=== PATIENT | female | born 1945 | race Caucasian/White ===

== ENCOUNTER → 2016-12-18 | Outpatient (CLI) | payer MEDICARE, OTHER ==
[~2016-12-18] MED LIST: ALEN35TA6 PO; ATOR10TA PO; CALC-151 PO; CALC-60 PO; GLIP5TAB10 PO; HYDR-3240 PO; LETR2.5T2 PO; LOSA100T6 PO; METF500T4 PO
== END | disposition home or self-care (01) ==
LOC: CFH 10:32
PROVIDERS: ATTEND Nurse Practitioner
DX: M48.07 Spinal stenosis, lumbosacral region (principal); M51.16 Intervertebral disc disorders with radiculopathy, lumbar region; M25.78 Osteophyte, vertebrae; M51.24 Other intervertebral disc displacement, thoracic region
CPT/HCPCS: 72148

== ENCOUNTER → 2017-05-01 | Outpatient (CLI) | payer MEDICARE, OTHER ==
[~2017-05-01] MED LIST changes: +HYDR-3237 PO
[2017-05-01 11:25] LABS: HEMATOCRIT 38.4 % (34.6-47.8); HEMOGLOBIN 12.9 g/dL (11.7-16.4); WHITE BLOOD COUNT 6.2 x10^3/uL (3.4-10)
[2017-05-01 11:32] LABS: ASPARTATE AMINO TRANSFERASE 27 U/L (15-37); BLOOD UREA NITROGEN 19 mg/dL (7-18)
== END | disposition home or self-care (01) ==
LOC: STAR 10:19
PROVIDERS: ATTEND Neurological Surgery
DX: Z01.818 Encounter for other preprocedural examination (principal); M43.15 Spondylolisthesis, thoracolumbar region; M54.16 Radiculopathy, lumbar region; R79.1 Abnormal coagulation profile; Z85.3 Personal history of malignant neoplasm of breast
CPT/HCPCS: 36415; 71020; 80053; 85025; 85610; 85730; 93005

== ENCOUNTER → 2017-05-04 | Outpatient (CLI) | payer MEDICARE, OTHER | END | disposition home or self-care (01) | LOC: CFH 14:21 | PROVIDERS: ATTEND Internal Medicine Hematology & Oncology | DX: Z12.31 Encounter for screening mammogram for malignant neoplasm of breast (principal); Z85.3 Personal history of malignant neoplasm of breast | CPT/HCPCS: 77063; G0202 ==

== ENCOUNTER 2017-05-12 12:02 | Inpatient (IN) | payer MEDICARE, OTHER ==
[2017-05-01 10:48] VITALS: BP 123/87
[~2017-05-12] VITALS: Ht 160 cm; Wt 88.9 kg
[2017-05-12] MEDS ORDERED: LACTATED RINGERS 1,000 ML IV SCH (12:42)
[2017-05-12] MEDS ORDERED: FENTANYL PF 100 MCG/2ML ONE ×3 (12:48→15:59)
[2017-05-12] MEDS ORDERED: MIDAZOLAM 1 MG/ML, 2ML ONE (12:48)
[2017-05-12] MEDS ORDERED: PROPOFOL 10 MG/ML, 20ML ONE (12:49)
[2017-05-12] MEDS ORDERED: CEFAZOLIN 1,000 MG ONE ×2 (12:50)
[2017-05-12] MEDS ORDERED: ROCURONIUM 10 MG/ML,10ML ONE ×2 (12:51→14:03)
[2017-05-12] MEDS ORDERED: NEOSTIGMINE 1 MG/ML, 10ML ONE ×2 (12:52)
[2017-05-12] MEDS ORDERED: GLYCOPYRROLATE 0.4 MG/2 ML, 2ML ONE (12:52)
[2017-05-12] MEDS ORDERED: PROMETHAZINE 25 MG/ML, 1ML IV PRN (14:00)
[2017-05-12] MEDS ORDERED: ONDANSETRON 2MG/ML, 2ML IVPush PRN (14:00)
[2017-05-12] MEDS ORDERED: FENTANYL PF 100 MCG/2ML IV PRN (14:00)
[2017-05-12] MEDS ORDERED: hydrALAzine 20 MG/ML, 1ML IV PRN (14:00)
[2017-05-12] MEDS ORDERED: HYDROcodone/APAP 7.5-325MG/15ML UDC PO PRN (14:00)
[2017-05-12] MEDS ORDERED: HYDROmorphone 1 MG/ML, 1ML IV PRN (14:00)
[2017-05-12] MEDS ORDERED: MEPERIDINE/PF 25MG/0.5ML IVPush PRN (14:00)
[2017-05-12] MEDS ORDERED: LABETALOL 5MG/ML, 20ML IV PRN (14:00)
[2017-05-12] MEDS ORDERED: ONDANSETRON 2MG/ML, 2ML ONE ×2 (14:13)
[2017-05-12] MEDS ORDERED: PHENYLEPHRINE 10 MG/ML ONE (14:31)
[2017-05-12] MEDS ORDERED: HYDROmorphone 2 MG/ML, 1ML ONE (15:59)
[2017-05-12] MEDS ORDERED: HYDROmorphone 2MG TABLET PO PRN (17:30)
[2017-05-12] MEDS ORDERED: MAGNESIUM HYDROXIDE 8%, 30ML UDC PO PRN (17:30)
[2017-05-12] MEDS ORDERED: HYDROmorphone 1 MG/ML, 1ML IVPush PRN (17:30)
[2017-05-12] MEDS ORDERED: DIPHENHYDRAMINE 50 MG CAPSULE PO PRN (17:30)
[2017-05-12] MEDS ORDERED: OXYcodone/APAP 5/325MG TABLET PO PRN (17:30)
[2017-05-12] MEDS ORDERED: METHOCARBAMOL 750 MG TABLET PO PRN (17:30)
[2017-05-12] MEDS ORDERED: DIPHENHYDRAMINE 50 MG/ML, 1ML IM PRN (17:30)
[2017-05-12] MEDS ORDERED: BISACODYL 10 MG SUPP PR PRN (17:30)
[2017-05-12] MEDS ORDERED: DIPHENHYDRAMINE 50 MG/ML, 1ML IVPush PRN (17:30)
[2017-05-12] MEDS ORDERED: ONDANSETRON 2MG/ML, 2ML IV PRN (17:30)
[2017-05-12] MEDS ORDERED: HYDROmorphone 2 MG/ML, 1ML IM PRN (17:30)
[2017-05-12] MEDS ORDERED: PROMETHAZINE 25 MG/ML, 1ML IM PRN (17:30)
[2017-05-12] MEDS: CEFAZOLIN PMX 1GM/50ML 50 ML IVPB SCH (19:22)
[2017-05-12] MEDS ORDERED: ZOLPIDEM 5MG TABLET PO PRN (21:00)
[2017-05-12 21:07] VITALS: BP 120/84
[2017-05-12] MEDS: HYDROcodone/APAP 5/325 TABLET PO PRN (22:15)
[2017-05-13 00:08] VITALS: BP 103/65
[2017-05-13] MEDS: HYDROcodone/APAP 5/325 TABLET PO PRN ×3 (02:29→10:43)
[2017-05-13 03:43] VITALS: BP 126/84
[2017-05-13] MEDS: CEFAZOLIN PMX 1GM/50ML 50 ML IVPB SCH (04:00)
[2017-05-13 06:52] VITALS: BP_SYST 108; BP_SYST 88; BP_DIAS 40; BP_DIAS 73
[2017-05-13] MEDS ORDERED: metFORMIN 500 MG TABLET PO SCH (09:00)
[2017-05-13] MEDS ORDERED: SENNA/DOCUSATE TABLET PO SCH (09:00)
[2017-05-13] MEDS ORDERED: CALCIUM/VITAMIN D3 250-125 TABLET PO SCH (09:00)
[2017-05-13] MEDS ORDERED: LOSARTAN 50MG TABLET PO SCH (09:00)
[2017-05-13] MEDS ORDERED: LETROZOLE 2.5 MG TABLET PO SCH (09:00)
== END 2017-05-13 11:45 | disposition home or self-care (01) | DRG 519 ==
LOC: OUT 12:02 → 4NOR 17:10 → OUT 23:01 → 4NOR 23:02 → DCLOUNGE 05-13 11:25
PROVIDERS: ADMIT Neurological Surgery; ATTEND Neurological Surgery
PROC: 01NB0ZZ Release Lumbar Nerve, Open Approach (ICD-10-PCS; 2017-05-12)
PROC: 0SB20ZZ Excision of Lumbar Vertebral Disc, Open Approach (ICD-10-PCS; principal; 2017-05-12 15:00)
DX: M51.16 Intervertebral disc disorders with radiculopathy, lumbar region (principal); E44.0 Moderate protein-calorie malnutrition; E11.9 Type 2 diabetes mellitus without complications; I10 Essential (primary) hypertension; M43.10 Spondylolisthesis, site unspecified; M51.26 Other intervertebral disc displacement, lumbar region; Z85.3 Personal history of malignant neoplasm of breast; Z79.84 Long term (current) use of oral hypoglycemic drugs; Z88.5 Allergy status to narcotic agent; Z87.891 Personal history of nicotine dependence
CPT/HCPCS: 72100; 82962; J0171; J0690; J1170; J2250; J2405; J2704; J2710; J3010; J3490; J2370; J7120

== ENCOUNTER → 2017-10-13 | Outpatient (CLI) | payer MEDICARE, OTHER ==
[~2017-10-13] MED LIST changes: +OMNIPAQUE 350 MG/ML, 150 ML BOTTLE ONE
== END ==
LOC: CFH 09:59
PROVIDERS: ATTEND Physician Assistant
DX: I72.8 Aneurysm of other specified arteries (principal); K57.30 Diverticulosis of large intestine without perforation or abscess without bleeding
CPT/HCPCS: 74178; Q9967

== ENCOUNTER 2017-11-10 09:47 | Day surgery (SDC) | payer MEDICARE, OTHER ==
[~2017-11-10] VITALS: Ht 157.5 cm; Wt 89.0 kg
[~2017-11-10 09:47] MED LIST changes: +CALC500T93 PO; -OMNIPAQUE 350 MG/ML, 150 ML BOTTLE ONE; +SITA50TA PO
[2017-11-10] MEDS ORDERED: LACTATED RINGERS 1,000 ML IV SCH (10:11)
[2017-11-10 10:19] VITALS: BP 141/92
[2017-11-10] MEDS ORDERED: MITOMYCIN 40 MG, WATER FOR INJECTION,STERILE 40 ML in SYRINGE 1 EA INTVESIC ONE (12:00)
[2017-11-10] MEDS ORDERED: FENTANYL PF 100 MCG/2ML ONE (12:08)
[2017-11-10] MEDS ORDERED: HYDROcodone/APAP 7.5-325MG/15ML UDC PO PRN (14:30)
[2017-11-10] MEDS ORDERED: PROMETHAZINE 25 MG/ML, 1ML IV PRN (14:30)
[2017-11-10] MEDS ORDERED: FENTANYL PF 100 MCG/2ML IV PRN (14:30)
[2017-11-10] MEDS ORDERED: MORPHINE SULFATE 4 MG/ML, 1ML IVPush PRN (14:30)
[2017-11-10] MEDS ORDERED: ALBUTEROL SULFATE 2.5 MG/3 ML NPPB PRN (14:30)
[2017-11-10] MEDS ORDERED: DEXAMETHASONE 4 MG/ML, 1ML ONE (15:30)
[2017-11-10] MEDS ORDERED: SUCCINYLCHOLINE 20 MG/ML, 10ML ONE (15:30)
[2017-11-10] MEDS ORDERED: CEFAZOLIN 1,000 MG ONE (15:30)
[2017-11-10] MEDS ORDERED: NEOSTIGMINE 1 MG/ML, 10ML ONE (15:30)
[2017-11-10] MEDS ORDERED: PROPOFOL 10 MG/ML, 20ML ONE (15:30)
[2017-11-10] MEDS ORDERED: ONDANSETRON 2MG/ML, 2ML ONE (15:30)
[2017-11-10] MEDS ORDERED: GLYCOPYRROLATE 0.2MG/1ML, 5ML ONE (15:30)
[2017-11-10] MEDS ORDERED: ROCURONIUM 10 MG/ML,10ML ONE (15:30)
== END 2017-11-10 17:00 ==
LOC: OUT 09:47
PROVIDERS: ATTEND Urology
DX: C67.9 Malignant neoplasm of bladder, unspecified (principal); E11.9 Type 2 diabetes mellitus without complications; I10 Essential (primary) hypertension; E78.5 Hyperlipidemia, unspecified; Z88.5 Allergy status to narcotic agent; Z88.8 Allergy status to other drugs, medicaments and biological substances
CPT/HCPCS: 52235; 82962; 88112; 88307; J0330; J0690; J1100; J2405; J2704; J2710; J3010; J7120; J9280; J3490

== ENCOUNTER → 2017-11-17 | Outpatient (CLI) | payer MEDICARE, OTHER | END | disposition home or self-care (01) | LOC: CFH 12:29 | PROVIDERS: ATTEND Internal Medicine Hematology & Oncology | DX: Z13.820 Encounter for screening for osteoporosis (principal); M85.88 Other specified disorders of bone density and structure, other site; C50.312 Malignant neoplasm of lower-inner quadrant of left female breast; Z78.0 Asymptomatic menopausal state | CPT/HCPCS: 77080 ==

== ENCOUNTER → 2017-12-16 | Outpatient (CLI) | payer MEDICARE, OTHER ==
[~2017-12-16] MED LIST changes: -METF500T4 PO; +METF500T5 PO
[2017-12-16 16:02] LABS: MICROSCOPIC AUTO
[2017-12-16 16:02] LABS: PROTHROMBIN TIME 10.3 Seconds (9.6-11.5)
[2017-12-16 16:07] LABS: ALBUMIN 3.9 g/dL (3.4-5.0); ANION GAP 7 mmol/L (5-15); CALCIUM 9.5 mg/dL (8.5-10.1); CHLORIDE 108 mmol/L (98-107)
[2017-12-16 16:12] LABS: ALANINE AMINOTRANSFERASE 47 U/L (12-78); ALKALINE PHOSPHATASE 59 U/L (45-117); BILIRUBIN,TOTAL 0.4 mg/dL (0.2-1.0); CREATININE 1.19 mg/dL (0.55-1.02); TOTAL PROTEIN 7.7 g/dL (6.4-8.2)
== END | disposition home or self-care (01) ==
LOC: STAR 14:47
PROVIDERS: ATTEND Urology
DX: Z01.818 Encounter for other preprocedural examination (principal); C67.9 Malignant neoplasm of bladder, unspecified; I10 Essential (primary) hypertension; E11.9 Type 2 diabetes mellitus without complications; Z88.5 Allergy status to narcotic agent
CPT/HCPCS: 36415; 80053; 81001; 85610; 85730; 87077; 87086; 87186

== ENCOUNTER 2017-12-25 10:49 | Day surgery (SDC) | payer MEDICARE, OTHER ==
[~2017-12-25] VITALS: Ht 157.5 cm; Wt 86.3 kg
[2017-12-25 11:21] VITALS: BP 123/76
[2017-12-25] MEDS ORDERED: LACTATED RINGERS 1,000 ML IV SCH (11:24)
[2017-12-25] MEDS ORDERED: FENTANYL PF 100 MCG/2ML ONE (12:54)
[2017-12-25] MEDS ORDERED: MIDAZOLAM 1 MG/ML, 2ML ONE (12:54)
[2017-12-25] MEDS ORDERED: DEXAMETHASONE 4 MG/ML, 1ML ONE (12:56)
[2017-12-25] MEDS ORDERED: CEFAZOLIN 1,000 MG ONE (12:56)
[2017-12-25] MEDS ORDERED: NEOSTIGMINE 1 MG/ML, 10ML ONE (12:56)
[2017-12-25] MEDS ORDERED: PROPOFOL 10 MG/ML, 20ML ONE (12:56)
[2017-12-25] MEDS ORDERED: GLYCOPYRROLATE 0.2MG/1ML, 5ML ONE (12:56)
[2017-12-25] MEDS ORDERED: ROCURONIUM 10 MG/ML,10ML ONE (12:56)
[2017-12-25] MEDS ORDERED: ONDANSETRON 2MG/ML, 2ML ONE (12:56)
[2017-12-25] MEDS ORDERED: EPHEDRINE 50 MG/ML, 1ML IVPush PRN (14:00)
[2017-12-25] MEDS ORDERED: ALBUTEROL SULFATE 2.5 MG/3 ML NPPB PRN (14:00)
[2017-12-25] MEDS ORDERED: MIDAZOLAM 1 MG/ML, 2ML IV PRN (14:00)
[2017-12-25] MEDS ORDERED: HYDROcodone/APAP 7.5-325MG/15ML UDC PO PRN (14:00)
[2017-12-25] MEDS ORDERED: ONDANSETRON ODT 8 MG PO PRN (14:00)
[2017-12-25] MEDS ORDERED: PROMETHAZINE 25 MG/ML, 1ML IV PRN (14:00)
[2017-12-25] MEDS ORDERED: MEPERIDINE/PF 25MG/0.5ML IVPush PRN (14:00)
[2017-12-25] MEDS ORDERED: LABETALOL 5MG/ML, 20ML IV PRN (14:00)
[2017-12-25] MEDS ORDERED: HYDROmorphone 1 MG/ML, 1ML IV PRN (14:00)
[2017-12-25] MEDS ORDERED: ACETAMINOPHEN 325 MG TABLET PO PRN (14:00)
[2017-12-25] MEDS ORDERED: FENTANYL PF 100 MCG/2ML IV PRN (14:00)
[2017-12-25] MEDS ORDERED: hydrALAzine 20 MG/ML, 1ML IV PRN (14:00)
== END 2017-12-25 15:35 | disposition home or self-care (01) ==
LOC: OR 10:49
PROVIDERS: ATTEND Urology
DX: N30.00 Acute cystitis without hematuria (principal); Z85.51 Personal history of malignant neoplasm of bladder; I10 Essential (primary) hypertension; E78.5 Hyperlipidemia, unspecified; E11.9 Type 2 diabetes mellitus without complications; Z85.3 Personal history of malignant neoplasm of breast; Z88.5 Allergy status to narcotic agent; Z88.8 Allergy status to other drugs, medicaments and biological substances; Z79.899 Other long term (current) drug therapy; Z79.84 Long term (current) use of oral hypoglycemic drugs; Z80.3 Family history of malignant neoplasm of breast
CPT/HCPCS: 52234; 82962; 88307; J0690; J1100; J2250; J2405; J2704; J2710; J3010; J3490; J7120

== ENCOUNTER → 2018-05-05 | Outpatient (CLI) | payer MEDICARE, OTHER ==
[~2018-05-05] MED LIST changes: -LOSA100T6 PO; +LOSA100T7 PO; +METF500T17 PO; -METF500T5 PO
== END | disposition home or self-care (01) ==
LOC: CFH 09:17
PROVIDERS: ATTEND Internal Medicine Hematology & Oncology
DX: Z12.31 Encounter for screening mammogram for malignant neoplasm of breast (principal); Z85.3 Personal history of malignant neoplasm of breast
CPT/HCPCS: 77067

== ENCOUNTER → 2018-11-16 | Outpatient (CLI) | payer MEDICARE, OTHER ==
[~2018-11-16] MED LIST changes: +LOSA100T14 PO; -LOSA100T7 PO
== END | disposition home or self-care (01) ==
LOC: CFH 12:13
PROVIDERS: ATTEND Internal Medicine Hematology & Oncology
DX: M85.88 Other specified disorders of bone density and structure, other site (principal)
CPT/HCPCS: 77080

== ENCOUNTER → 2019-05-09 | Outpatient (CLI) | payer MEDICARE, OTHER ==
[~2019-05-09] MED LIST changes: +ALEN35TA13 PO; -ALEN35TA6 PO
== END | disposition home or self-care (01) ==
LOC: CFH 09:37
PROVIDERS: ATTEND Internal Medicine Hematology & Oncology
DX: Z12.31 Encounter for screening mammogram for malignant neoplasm of breast (principal)
CPT/HCPCS: 77063; 77067

== ENCOUNTER → 2020-05-11 | Outpatient (CLI) | payer MEDICARE, OTHER ==
[~2020-05-11] MED LIST changes: -ALEN35TA13 PO; +ALEN35TA49 PO
== END | disposition home or self-care (01) ==
LOC: CFH 10:49
PROVIDERS: ATTEND Family Medicine
DX: Z12.31 Encounter for screening mammogram for malignant neoplasm of breast (principal)
CPT/HCPCS: 77063; 77067

== ENCOUNTER → 2020-12-13 | Outpatient (CLI) | payer MEDICARE, OTHER ==
[~2020-12-13] MED LIST changes: +HYDR-2214 PO; -HYDR-3240 PO
== END | disposition home or self-care (01) ==
LOC: CFH 11:31
PROVIDERS: ATTEND Family Medicine
DX: M85.80 Other specified disorders of bone density and structure, unspecified site (principal); N95.8 Other specified menopausal and perimenopausal disorders
CPT/HCPCS: 77080